=== PATIENT | male | born 1980 | race Caucasian/White ===

== ENCOUNTER → 2023-04-21 | Emergency (ER) | payer SELFPAY ==
[~2023-04-21] MED LIST: dexAMETHasone 10 MG/ML VIAL ONE
--- NOTE | 2023-04-21 09:15 | ER ---
Nurse's Notes [facility] Name: Rafi Kirk Age: 42 yrs Sex: Male : 1980 Arrival Date: 04/21/2023 Time: 08:54 Bed IW1 Private MD: Diagnosis: Allergic contact dermatitis due to other agents Presentation: 04/21 09:09 Chief complaint: Rash on legs after massage oil exposure 1 week ago. Coronavirus hb screen: At this time, the client does not indicate any symptoms associated with coronavirus-19. Ebola Screen: No symptoms or risks identified at this time. Risk Assessment: Do you want to hurt yourself or someone else? Patient reports no desire to harm self or others. Onset of symptoms was April 14, 2023. 09:09 Method Of Arrival: Ambulatory hb 09:09 Acuity: VINICIO 4 hb 09:09 Initial Sepsis Screen: Does the patient meet any 2 criteria? No. Patient's initial hb sepsis screen is negative. Does the patient have a suspected source of infection? No. Patient's initial sepsis screen is negative. Triage Assessment: 09:09 General: Appears in no apparent distress. Behavior is calm, cooperative. Pain: Pain hb currently is 1 out of 10 on a pain scale. at worst was 6 out of 10 on a pain scale. Neuro: Level of Consciousness is awake, alert, obeys commands, Oriented to person, place, time, situation. Cardiovascular: Patient's skin is warm and dry. Respiratory: Respiratory effort is even, unlabored, Respiratory pattern is regular, symmetrical. Historical: - Allergies: 09:10 No Known Allergies; hb - Immunization history:: Adult Immunizations up to date. - Social history:: Smoking status: Patient denies any tobacco usage or history of. Assessment: 09:11 General: See triage assessment.. hb Vital Signs: 09:09 BP 141 / 90; Pulse 88; Resp 16; Temp 97.9; Pulse Ox 97% on R/A; Weight 83.91 kg; Height hb 5 ft. 8 in. ; Pain 6/10; 09:09 Body Mass Index 28.13 (83.91 kg, 172.72 cm) hb 09:09 Pain Scale: Adult hb ED Course: 08:57 Patient arrived in ED. ae5 08:58 Clemencia Winston FNP is [facility]. jh7 08:58 Glynn Gomez MD is Attending Physician. 7 09:10 Triage completed. hb 09:15 Julia Mays, RN is Primary Nurse. hb 09:22 Arm band placed on. hb Administered Medications: 09:22 Drug: Dexamethasone IM 10 mg IM once Route: IM; Site: right deltoid; hb 09:22 Follow up: Response: Medication administered at discharge. hb Outcome: 09:14 Discharge ordered by . [facility] 09:22 Discharged to home ambulatory, hb 09:22 Condition: stable 09:22 Discharge instructions given to patient, Instructed on discharge instructions, follow up and referral plans. medication usage, Demonstrated understanding of instructions, follow-up care, medications, Prescriptions given X 2, 09:23 Patient left the ED. hb Signatures: Julia Mays RN RN Clemencia Mccracken FNP [employer] RN [facility] Natalee Motley ae5 Corrections: (The following items were deleted from the chart) 09:10 09:09 BP 141 / 90; Pulse 88bpm; Resp 16bpm; Pulse Ox 97% RA; Temp 97.9F; hb hb
--- NOTE | 2023-04-21 09:15 | EDPHYS ---
Physician Documentation [facility] Name: Rafi Kirk Age: 42 yrs Sex: Male : 1980 Arrival Date: 04/21/2023 Time: 08:54 Bed IW1 Private MD: ED Physician Glynn Gomez HPI: 04/21 09:09 This 42 yrs old Male presents to ER via Ambulatory with complaints of Rash. jh7 09:09 The patient's rash thought to be caused by Dermatitis Contact allergy. The rash is jh7 located on the right leg. The rash can be described as erythematous, urticarial. Onset: The symptoms/episode began/occurred 1 week(s) ago. Associated signs and symptoms: Pertinent positives: itching, Pertinent negatives: fever, swelling of lips, swelling of throat, swelling of tongue, vomiting, wheezing. Treatment given at home: vinegar. Patient reports allergic reaction to massage oil occurring 1 week ago. Reports that the rash is itchy and spreading up his leg. NKDA, no PMH.. Historical: - Allergies: 09:10 No Known Allergies; hb - Immunization history:: Adult Immunizations up to date. - Social history:: Smoking status: Patient denies any tobacco usage or history of. ROS: 09:09 Constitutional: Negative for fever, chills, and weight loss, Eyes: Negative for injury, jh7 pain, redness, and discharge, Neck: Negative for injury, pain, and swelling, Cardiovascular: Negative for chest pain, palpitations, and edema, Respiratory: Negative for shortness of breath, cough, wheezing, and pleuritic chest pain, Abdomen/GI: Negative for abdominal pain, nausea, vomiting, diarrhea, and constipation, Back: Negative for injury and pain, MS/Extremity: Negative for injury and deformity, Neuro: Negative for headache, weakness, numbness, tingling, and seizure, 09:09 Skin: Positive for rash, 09:09 All other systems are negative, Exam: 09:09 Constitutional: This is a well developed, well nourished patient who is awake, alert, jh7 and in no acute distress. Head/Face: Normocephalic, atraumatic. Neck: Trachea midline, no thyromegaly or masses palpated, and no cervical lymphadenopathy. Supple, full range of motion without nuchal rigidity, or vertebral point tenderness. No Meningismus. Cardiovascular: Regular rate and rhythm with a normal S1 and S2. No gallops, murmurs, or rubs. Normal PMI, no JVD. No pulse deficits. Respiratory: Lungs have equal breath sounds bilaterally, clear to auscultation and percussion. No rales, rhonchi or wheezes noted. No increased work of breathing, no retractions or nasal flaring. Abdomen/GI: Soft, non-tender, with normal bowel sounds. No distension or tympany. No guarding or rebound. No evidence of tenderness throughout. 09:09 MS/ Extremity: Pulses equal, no cyanosis. Neurovascular intact. Full, normal range of motion. Neuro: Awake and alert, GCS 15, oriented to person, place, time, and situation. Motor strength 5/5 in all extremities. Sensory grossly intact. Normal gait. 09:09 Skin: contact dermatitis, on the right leg, Vital Signs: 09:09 BP 141 / 90; Pulse 88; Resp 16; Temp 97.9; Pulse Ox 97% on R/A; Weight 83.91 kg; Height hb 5 ft. 8 in. ; Pain 6/10; 09:09 Body Mass Index 28.13 (83.91 kg, 172.72 cm) hb 09:09 Pain Scale: Adult hb MDM: 08:58 Patient medically screened. [facility] 09:25 Differential diagnosis: impetigo, varicella, allergic reaction, Contact dermatitis. [facility] Data reviewed: vital signs, nurses notes. I considered the following discharge prescriptions or medication management in the emergency department Medications were administered in the Emergency Department. See MAR. Counseling: I had a detailed discussion with the patient and/or guardian regarding the historical points, exam findings, and any diagnostic results supporting the discharge/admit diagnosis, to return to the emergency department if symptoms worsen or persist or if there are any questions or concerns that arise at home. Administered Medications: 09:22 Drug: Dexamethasone IM 10 mg IM once Route: IM; Site: right deltoid; hb 09:22 Follow up: Response: Medication administered at discharge. Disposition: 09:54 Co-signature as Attending Physician, Glynn Gomez MD I reviewed the patient's care rn provided by the Advanced Practice Provider and agree with the diagnosis and treatment plan. Disposition Summary: 04/21/23 09:14 Discharge Ordered Notes: Location: Home [facility] Problem: new [facility] Symptoms: are unchanged [facility] Condition: Stable [facility] Diagnosis - Allergic contact dermatitis due to other agents [facility] Followup: [facility] - With: Private Physician - When: 2 - 3 days - Reason: Recheck today's complaints Discharge Instructions: - Discharge Summary Sheet [facility] - Contact Dermatitis [facility] Forms: - Medication Reconciliation Form [facility] - Thank You Letter [facility] - Patient Portal Instructions [facility] - Leadership Thank You Letter [facility] Prescriptions: - Hydroxyzine HCl 25 mg Oral Tablet - take 1 tablet ORAL route every 6 hours As needed; 30 tablet; Refills: 0, jh Product Selection Permitted - Prednisone 20 mg Oral Tablet - take 2 tablets ORAL route once daily for 5 days; 10 tablet; Refills: 0, Product [facility] Selection Permitted Signatures: Glynn Gomez MD MD rn Baxter, Heather, RN RN hb Hadash, Jennifer, [employer] HE[employer] TENDER [employer] TENDER [facility]
[2023-04-21 09:41] VITALS: BP 141/90; TEMP 97.9; O2SAT 97
== END ==
LOC: ER 08:54
DX: L23.7 Allergic contact dermatitis due to plants, except food (principal)
CPT/HCPCS: 96372; 99284; J1100

== ENCOUNTER 2024-03-16 13:46 | Emergency (ER) | payer SELFPAY ==
[2024-03-16 15:21] LABS: Absolute Basophils 0.1 K/uL (0-0.5); Absolute Eosinophils 0.1 K/uL (0-0.5); Absolute Lymphocytes (CBC) 1.2 K/uL (0.7-4.9); Absolute Monocytes 0.9 K/uL (0.1-1.3); Basophils % 1.1 % (0-1.3); Eosinophils % 0.5 % (0-4.4); Hematocrit 44.7 % (39.6-49.0); Lymphocytes % 10.9 % (15.3-44.8); MCH 30.7 pg (27.0-35.0); MCHC 33.6 g/dL (32.0-36.0); MCV 91.3 fL (80-100); MPV 7.1 fL (7.6-11.3); Neutrophils % 79.5 % (41.7-73.7); Nucleated Red Blood Cells % 0.1 % (0-0); Platelets 369 thou/uL (152-406); RBC Red Blood Cell Count 4.89 M/uL (4.33-5.43); Red Cell Distribution Width 13.3 % (12.1-15.2)
--- NOTE | 2024-03-16 15:26 | RAD REPORT ---
EXAMINATION: CT Stone Protocol CLINICAL INDICATION: Male, 43 years old. FLANK PAIN TECHNIQUE: CT abdomen and pelvis was performed, without IV contrast, as per department protocol. Axia l, sagittal and coronal reconstructions were obtained. One or more of the following dose reduction techniques were used: Automated exposure control, adjustment of the mA and kV according to the patien t size, and iterative reconstruction. Unless otherwise specified, incidental findings do not require dedicated imaging follow-up. COMPARISON: No prior exam. FINDINGS: The lack of intravenous contrast limits the sensitivity of this exam for evaluation of solid visceral organs, vascular structures, and retroperitoneum. LOWER CHEST: The visualized lung bases are clear. LIVER: Normal in size and contour. No focal lesion. BILIARY SYSTEM: No suspicious abnormalities. SPLEEN: Normal size. No focal lesion. PANCREAS: No mass, ductal dilation, or ayse-pancreatic fluid. ADRENALS: Normal; no mass. KIDNEYS AND URETERS: Normal size and contour. Moderate left hydroureter nephrosis and proximal hydrou reter. 5 mm left mid ureteric calculus. URINARY BLADDER: Normal contour. GASTROINTESTINAL TRACT: No evidence of bowel obstruction, significant free fluid, free air or abscess . APPENDIX: Normal appendix. LYMPH NODES: No lymphadenopathy. MUSCULOSKELETAL: No acute or suspicious osseous abnormality. ADDITIONAL FINDINGS: None. IMPRESSION: Moderate left hydroureteronephrosis. 5 mm calculus along the left mid ureter appears to be causing th e obstruction. THIS REPORT CONTAINS FINDINGS THAT MAY BE CRITICAL TO PATIENT CARE. The findings were verbally commun icated via telephone to Miguel Ángel A Page, PAC on 03/16/2024 3:23 PM.
[2024-03-16 15:31] LABS: Specific Gravity > 1.030 (1.005-1.030); Sqamous Epithelial None Seen /HPF (None Seen); Urine Bacteria None Seen /HPF (<20); Urine Bilirubin NEGATIVE (Negative); Urine Blood 2+ (Negative); Urine Clarity Extremely Turbid (Clear); Urine Color Yellow (Yellow); Urine Culture Reflex Order NOT NEEDED; Urine Glucose NEGATIVE (Negative); Urine Ketones TRACE (Negative); Urine Microscopic Reflex YN ORDER UMIC; Urine Mucus 1+ /HPF (None Seen); Urine Nitrite NEGATIVE (Negative); Urine Protein 1+ (Negative); Urine RBC >50 /HPF (None Seen); Urine Urobilinogen 1+ (Normal)
[2024-03-16] MEDS ORDERED: ONDANSETRON 4 MG/2 ML VIAL ONE (15:36)
[2024-03-16] MEDS ORDERED: TAMSULOSIN 0.4 MG SR CAP ONE (15:36)
[2024-03-16] MEDS ORDERED: MAGNESIUM SULFATE 1 gm IVPB 1 GM/100 ML BAG IV ONE (15:37)
[2024-03-16] MEDS ORDERED: MORPHINE 4 MG/ML SYR ONE (15:37)
[2024-03-16] MEDS ORDERED: NA CHLORIDE 0.9% 1,000 ML ONE (15:37)
[2024-03-16 15:46] LABS: Albumin 3.9 g/dL (3.4-5.0); Albumin/Globulin Ratio 1.1 (1.1-1.8); Anion Gap 8.1 mEq/L (5.0-15.0); Bilirubin Total 0.9 mg/dL (0.2-1.0); Globulin 3.7 g/dL (2.3-3.5); Potassium 4.1 mEq/L (3.5-5.1); Protein, Total 7.6 g/dL (6.4-8.2)
--- NOTE | 2024-03-16 16:33 | ER ---
Nurse's Notes [facility] Name: Rafi Kirk Age: 43 yrs Sex: Male : 1980 Arrival Date: 03/16/2024 Time: 13:46 Bed 25 Private MD: Diagnosis: Calculus of ureter-left;Nausea Presentation: 03/16 14:22 Chief complaint: Patient states: pain to left lower back, radiating to LLQ. Difficult tm6 to urinate. Started this morning around 10am. Coronavirus screen: Client denies travel out of the [place] in the last 14 days. Ebola Screen: Patient negative for fever greater than or equal to 101.5 degrees Fahrenheit, and additional compatible Ebola Virus Disease symptoms Patient denies exposure to infectious person. Patient denies travel to an Ebola-affected area in the 21 days before illness onset. No symptoms or risks identified at this time. Initial Sepsis Screen: Does the patient meet any 2 criteria?. Initial Sepsis Screen: Does the patient have a suspected source of infection? No. Patient's initial sepsis screen is negative. Risk Assessment: Do you want to hurt yourself or someone else? Patient reports no desire to harm self or others. Onset of symptoms was March 16, 2024 at 10:00. 14:22 Method Of Arrival: Wheelchair tm6 14:22 Acuity: VINICIO 3 tm6 Triage Assessment: 14:24 General: Appears uncomfortable, Behavior is cooperative. Pain: Complains of pain in tm6 anterior aspect of right lateral abdomen, posterior aspect of right lateral abdomen and left lower quadrant Pain currently is 10 out of 10 on a pain scale. Pain began 10am. EENT: No signs and/or symptoms were reported regarding the EENT system. Neuro: Level of Consciousness is awake, alert, obeys commands, Oriented to person, place, time, situation. Cardiovascular: Patient's skin is warm and dry. Respiratory: Airway is patent Respiratory effort is even, unlabored, Respiratory pattern is regular, symmetrical. GI: Abdomen is flat, non-distended, Reports lower abdominal pain. : Reports pain in left flank(s), with urination, Pain is 10 out of 10 on a pain scale. difficulty voiding, blood in urine. Derm: No signs and/or symptoms reported regarding the dermatologic system. Musculoskeletal: Reports pain in anterior aspect of right lateral abdomen, posterior aspect of right lateral abdomen and left lower quadrant since 10am. Pain is 10 out of 10 on a pain scale. Historical: - Allergies: 14:22 No Known Allergies; tm6 - PMHx: 14:24 None; tm6 - PSHx: 14:24 shoulder; tm6 - Immunization history:: Client reports having NOT received the Covid vaccine. - Infectious Disease History:: Denies. - Social history:: Smoking status: Patient reports the use of cigarette tobacco products, smokes one pack cigarettes per day. Patient uses Patient/guardian denies using alcohol. Screenin:54 [facility] ED Fall Risk Assessment (Adult) History of falling in the last 3 months, jb4 including since admission No falls in past 3 months (0 pts) Confusion or Disorientation No (0 pts) Intoxicated or Sedated No (0 pts) Impaired Gait No (0 pts) Mobility Assist Device Used No (0 pt) Altered Elimination No (0 pt) Score/Fall Risk Level 0 - 2 = Low Risk Oriented to surroundings, Maintained a safe environment. Abuse screen: Denies threats or abuse. Nutritional screening: No deficits noted. Tuberculosis screening: No symptoms or risk factors identified. Assessment: 15:10 General: Appears in no apparent distress. uncomfortable, Behavior is calm, cooperative, jb4 appropriate for age. Pain: Complains of pain in left low back Pain radiates to left lower quadrant Pain currently is 9 out of 10 on a pain scale. Neuro: Level of Consciousness is awake, alert, obeys commands, Oriented to person, place, time, situation. Cardiovascular: Patient's skin is warm and dry. Respiratory: Airway is patent Respiratory effort is even, unlabored, Respiratory pattern is regular, symmetrical. Derm: Skin is intact, Skin is pink, warm \T\ dry. Musculoskeletal: Circulation, motion, and sensation intact. Range of motion: intact in all extremities. 16:28 Reassessment: Patient appears in no apparent distress at this time. Patient and/or jb4 family updated on plan of care and expected duration. Pain level reassessed. Patient is alert, oriented x 3, equal unlabored respirations, skin warm/dry/pink. Patient states feeling better. Patient states symptoms have improved. Vital Signs: 14:22 BP 136 / 93; Pulse 95; Resp 19; Pulse Ox 99% on R/A; MAP 107 mmHg; Weight 90.72 kg; tm6 Height 5 ft. 8 in. ; Pain 10/10; 14:22 Body Mass Index 30.41 (90.72 kg, 172.72 cm) tm6 14:22 Pain Scale: Adult tm6 ED Course: 13:48 Patient arrived in ED. im 13:53 Miguel Ángel Jones PA is PHCP. cp 13:53 Wolfgang Ruiz MD is Attending Physician. cp 14:23 Triage completed. tm6 14:24 Arm band placed on right wrist. tm6 14:54 CT Stone Protocol In Process Unspecified. EDMS 15:14 Initial lab(s) drawn, by me, sent to lab. Inserted saline lock: 20 gauge in left zm antecubital area, using aseptic technique. Blood collected. Flushed with 10 mL NS. 15:14 CBC with Diff Sent. zm 15:14 CMP Sent. zm 15:14 Lipase Sent. zm 15:14 Urinalysis w/ reflexes Sent. zm 15:46 Deni Cho RN is Primary Nurse. jb4 16:32 Ryan Montgomery MD is Referral Physician. cp 16:54 Patient has correct armband on for positive identification. Bed in low position. Call jb4 light in reach. Side rails up X 1. Provided Education on: Discharge instructions.. 16:54 No provider procedures requiring assistance completed. IV discontinued, intact, jb4 bleeding controlled, No redness/swelling at site. Pressure dressing applied. Administered Medications: 15:47 Drug: morphine IVP or IV 4 mg IVP once over 4 mins Route: IVP; Infused Over: 4 mins; jb4 Site: left antecubital; 16:54 Follow up: Response: No adverse reaction; Marked relief of symptoms; Pain is decreased; jb4 RASS: Alert and Calm (0) 15:48 Drug: Ondansetron IVP 4 mg IVP once; over 2 minutes Route: IVP; Site: left antecubital; jb4 16:54 Follow up: Response: No adverse reaction; Marked relief of symptoms jb4 15:48 Drug: NS 0.9% IV 1000 ml IV at 1 bolus Per protocol; to be given as a bolus over 60 jb4 minutes Route: IV; Rate: 1 bolus; Site: left antecubital; 16:53 Follow up: Response: No adverse reaction; IV Status: Pt discharged; IV Intake: 950ml jb4 15:48 Drug: Flomax PO 0.4 mg PO once Route: PO; jb4 16:53 Follow up: Response: No adverse reaction; Marked relief of symptoms jb4 15:48 Drug: Magnesium Sulfate IVPB 1 grams IVPB once over 1 hrs Route: IVPB; Infused Over: 1 jb4 hrs; Site: left antecubital; 16:53 Follow up: Response: No adverse reaction; IV Status: Completed infusion; IV Intake: jb4 100ml 16:53 Not Given (Patient Refused): morphineor iv 4 mg IVP once over 4 mins jb4 Intake: 16:53 IV: 100ml; Total: 100ml. jb4 16:53 IV: 950ml; Total: 1050ml. jb4 Outcome: 16:33 Discharge ordered by MD. cp 16:54 Discharged to home ambulatory, with family, jb4 16:54 Condition: stable 16:54 Discharge instructions given to patient, Instructed on discharge instructions, follow up and referral plans. no drinking with medication, no driving heavy equipment, medication usage, Demonstrated understanding of instructions, follow-up care, medications, Prescriptions given X 3, 16:55 Patient left the ED. jb4 Signatures: Dispatcher [employer] EDMS Miguel Ángel Jones PA PA cp Bryson, James RN RN jb4 Jeanette Hu Itzel im Masterson, Tawney RN RN tm6
--- NOTE | 2024-03-16 16:33 | EDPHYS ---
Physician Documentation [facility] Name: Rafi Kirk Age: 43 yrs Sex: Male : 1980 Arrival Date: 03/16/2024 Time: 13:46 Bed 25 Private MD: ED Physician Wolfgang Ruiz HPI: 03/16 14:45 This 43 yrs old Male presents to ER via Wheelchair with complaints of Possible Kidney cp Stone. 14:45 The patient complains of pain in the left flank. cp 14:45 The pain radiates to the back. Onset: The symptoms/episode began/occurred this morning. cp Associated signs and symptoms: Pertinent positives: nausea, Pertinent negatives: diarrhea, fever, pain radiating to the lower extremities, vomiting. The patient has experienced similar episodes in the past, today's symptoms are similar, to when the patient was apparently diagnosed with kidney stone. Historical: - Allergies: 14:22 No Known Allergies; tm6 - PMHx: 14:24 None; tm6 - PSHx: 14:24 shoulder; tm6 - Immunization history:: Client reports having NOT received the Covid vaccine. - Infectious Disease History:: Denies. - Social history:: Smoking status: Patient reports the use of cigarette tobacco products, smokes one pack cigarettes per day. Patient uses Patient/guardian denies using alcohol. ROS: 14:50 Constitutional: Negative for body aches, chills, fever, poor PO intake, cp 14:50 Eyes: Negative for injury, pain, redness, and discharge, cp 14:50 ENT: Negative for drainage from ear(s), ear pain, sore throat, difficulty swallowing, difficulty handling secretions, 14:50 Cardiovascular: Negative for chest pain, 14:50 Respiratory: Negative for cough, shortness of breath, wheezing, 14:50 Abdomen/GI: Positive for abdominal pain, nausea, Negative for vomiting, diarrhea, constipation, 14:50 Back: Positive for flank pain, on the left, 14:50 Neuro: Negative for altered mental status, dizziness, headache, weakness, 14:50 All other systems are negative, Exam: 14:55 Constitutional: The patient appears in no acute distress, alert, awake, cp non-diaphoretic, non-toxic, well developed, well nourished, in obvious pain, uncomfortable, 14:55 Head/Face: Normocephalic, atraumatic. cp 14:55 Eyes: Periorbital structures: appear normal, Conjunctiva: normal, no exudate, no injection, Sclera: no appreciated abnormality, Lids and lashes: appear normal, bilaterally, 14:55 ENT: External ear(s): are unremarkable, Nose: is normal, Mouth: Lips: moist, Oral mucosa: moist, Posterior pharynx: Airway: no evidence of obstruction, patent, 14:55 Chest/axilla: Inspection: normal, 14:55 Cardiovascular: Rate: normal, Rhythm: regular, Edema: is not appreciated, JVD: is not appreciated, 14:55 Respiratory: the patient does not display signs of respiratory distress, Respirations: normal, no use of accessory muscles, no retractions, labored breathing, is not present, Breath sounds: are clear throughout, no decreased breath sounds, no stridor, no wheezing, 14:55 Abdomen/GI: Inspection: abdomen appears normal, Bowel sounds: active, all quadrants, Palpation: soft, in all quadrants, severe abdominal tenderness, in the anterior aspect of left lateral abdomen and posterior aspect of left lateral abdomen, rebound tenderness, is not appreciated, 14:55 Neuro: Orientation: to person, place \T\ time. Mentation: is normal, Vital Signs: 14:22 BP 136 / 93; Pulse 95; Resp 19; Pulse Ox 99% on R/A; MAP 107 mmHg; Weight 90.72 kg; tm6 Height 5 ft. 8 in. ; Pain 10/10; 14:22 Body Mass Index 30.41 (90.72 kg, 172.72 cm) tm6 14:22 Pain Scale: Adult tm6 MDM: 14:29 Medical Screening Exam initiated cp 15:00 Differential diagnosis: nephrolithiasis, pyelonephritis, UTI, diverticulitis, cp pancreatitis. 16:32 Data reviewed: vital signs, nurses notes, lab test result(s), radiologic studies, CT cp scan. 16:32 I considered the following discharge prescriptions or medication management in the emergency department Medications were administered in the Emergency Department. See MAR. Counseling: I had a detailed discussion with the patient and/or guardian regarding the historical points, exam findings, and any diagnostic results supporting the discharge/admit diagnosis, lab results, radiology results, to return to the emergency department if symptoms worsen or persist or if there are any questions or concerns that arise at home. Response to treatment: the patient's symptoms have markedly improved after treatment, and as a result, I will discharge patient. 03/16 14:31 Order name: CBC with Diff; Complete Time: 15:41 03/16 15:41 Interpretation: Normal except: WBC 11.40; MPV 7.1; HALINA% 79.5; LYM% 10.9; NEUT A 9.0. 03/16 14:31 Order name: CMP; Complete Time: 16:27 03/16 16:27 Interpretation: Normal except: NA 135; GLUC 124; CRE 1.37; GFR 65; GLOB 3.7. 03/16 14:31 Order name: Lipase; Complete Time: 16:27 03/16 16:27 Interpretation: Reviewed. 03/16 14:31 Order name: Urinalysis w/ reflexes; Complete Time: 15:41 03/16 15:41 Interpretation: Normal except: UCLA Extremely Turbid; Urine SG > 1.030; UKET TRACE; cp UBLD 2+; UPH 8.0; UPROT 1+; UUROB 1+; URBC >50. 03/16 14:31 Order name: CT Stone Protocol; Complete Time: 15:41 03/16 16:28 Interpretation: Report reviewed. 03/16 14:31 Order name: IV Saline Lock; Complete Time: 15:14 03/16 14:31 Order name: Labs collected and sent; Complete Time: 15:14 Administered Medications: 15:47 Drug: morphine IVP or IV 4 mg IVP once over 4 mins Route: IVP; Infused Over: 4 mins; jb4 Site: left antecubital; 16:54 Follow up: Response: No adverse reaction; Marked relief of symptoms; Pain is decreased; jb4 RASS: Alert and Calm (0) 15:48 Drug: Ondansetron IVP 4 mg IVP once; over 2 minutes Route: IVP; Site: left antecubital; jb4 16:54 Follow up: Response: No adverse reaction; Marked relief of symptoms jb4 15:48 Drug: NS 0.9% IV 1000 ml IV at 1 bolus Per protocol; to be given as a bolus over 60 jb4 minutes Route: IV; Rate: 1 bolus; Site: left antecubital; 16:53 Follow up: Response: No adverse reaction; IV Status: Pt discharged; IV Intake: 950ml jb4 15:48 Drug: Flomax PO 0.4 mg PO once Route: PO; jb4 16:53 Follow up: Response: No adverse reaction; Marked relief of symptoms jb4 15:48 Drug: Magnesium Sulfate IVPB 1 grams IVPB once over 1 hrs Route: IVPB; Infused Over: 1 jb4 hrs; Site: left antecubital; 16:53 Follow up: Response: No adverse reaction; IV Status: Completed infusion; IV Intake: jb4 100ml 16:53 Not Given (Patient Refused): morphineor iv 4 mg IVP once over 4 mins jb4 Disposition Summary: 03/16/24 16:33 Discharge Ordered Notes: Location: Home cp Problem: new cp Symptoms: have improved cp Condition: Stable cp Diagnosis - Calculus of ureter - left cp - Nausea cp Followup: cp - With: Ryan Montgomery MD - When: 5 - 6 days - Reason: pain continues Discharge Instructions: - Discharge Summary Sheet cp - Kidney Stones cp - Nausea, Adult cp Forms: - Medication Reconciliation Form cp - Antibiotic Education cp - Prescription Opioid Use cp - Patient Portal Instructions cp - Leadership Thank You Letter cp Prescriptions: - Flomax 0.4 mg Oral capsule - take 1 capsule ORAL route every 24 hours As needed; 7 capsule; Refills: 0, cp Product Selection Permitted - Tramadol 50 mg Oral Tablet - take 1 tablet ORAL route every 8 hours as needed; 12 tablet; Refills: 0, cp Product Selection Permitted - ondansetron 8 mg Oral Tablet,disintegrating - take 1 tablet ORAL route every 12 hours; 10 tablet; Refills: 0, Product cp Selection Permitted Signatures: Dispatcher [employer] Miguel Ángel Benz PA PA cp Deni Cho, RN RN jb4 Nely Borjas RN RN tm6
[2024-03-16 19:15] VITALS: BP 136/93; O2SAT 99
== END 2024-03-16 16:55 | disposition home or self-care (01) ==
LOC: ER 13:46
DX: N20.2 Calculus of kidney with calculus of ureter (principal); R11.0 Nausea; F17.210 Nicotine dependence, cigarettes, uncomplicated
CPT/HCPCS: 36415; 74176; 76377; 80053; 81001; 83690; 85025; 96365; 96375; 99284; J2405; J3475; J7030